=== PATIENT | female | born 1990 | race Two or more races ===

== ENCOUNTER → 2021-03-09 | Day surgery (SDC) | payer OTHER ==
[~2021-03-09] VITALS: Ht 152.4 cm; Wt 61.2 kg
[~2021-03-09] MED LIST: PRENATAL + DHA1 EAC1 PO
== END | disposition home or self-care (01) ==
LOC: ER 08:48 → CIR.AMB 08:54 → SEC-K 14:24 → ER 14:24 → EDSTATUS 17:00 → O/R 03-10 04:06 → SEC-K 03-10 04:06 → O/R 03-10 12:50
PROVIDERS: Obstetrics & Gynecology; ATTEND General Practice
PROC: 10D07Z8 Extraction of Products of Conception, Other, Via Natural or Artificial Opening (ICD-10-PCS; principal; 2021-03-09 17:00)
DX: O02.0 Blighted ovum and nonhydatidiform mole (principal); Z3A.09 9 weeks gestation of pregnancy